=== PATIENT | female | born 2005 | race Caucasian/White ===

== ENCOUNTER 2025-03-05 08:07 | Emergency (ER) | payer OTHER, SELFPAY ==
[2025-03-05 08:08] VITALS: BP 118/71
--- NOTE | 2025-03-05 08:21 | ED.SKININJ ---
HPI-Injury
General
Chief Complaint: Ear Problem
Source: patient
Exam Limitations: none
Time Seen by Provider: 03/05/25 08:16
Nursing documentation reviewed up to this point in time: agreed with
History of Present Illness-Injury
Initial Injury comments:
20-year-old female with history of several bilateral ear infections in the past, last one was last year presents with bilateral ear pain, muffled sounds. She states the right ear pain started 2 days ago and then the left ear started bothering her
last night. She did go swimming in the ocean 4 days ago. She denies fever or chills. Denies N/V/D/C. Denies neck pain or headache.
Past History
Past History
ED Past Medical History: Other (Ear infections)
ED Past Surgical History: None
Social History
Tobacco: Non-smoker
Alcohol: None
Personal: Single
Living: with family
Employment: Employed
Review of Systems
Review of Systems
Allergies reviewed?: Yes
All Other Systems: ROS reviewed and negative except as documented in HPI and ROS
Constitutional: Denies fever or chills
EENT: Reports other (Bilateral ear pain right greater than left); Denies sore throat
Respiratory: Denies trouble breathing
Cardiac: Denies chest pain
ABD/GI: Denies abdominal pain or nausea
Musculoskeletal: Denies neck pain
Skin: Reports no symptoms
Neurological: Reports no symptoms
Phy Exam
Physical Exam
Physical Exam:
GENERAL: No acute distress. A&Ox3.
CONSTITUTIONAL: Afebrile.
EYES: clear, conjunctivae normal
ENMT: moist mucus membranes, Pharynx nl. Both ear canals with debris small amount whitish-yellow exudate, R>L, mildly erythematous, TMS visible, retracted, erythematous,
Neck: supple, no lymphadenopathy
RESPIRATORY: Regular respirations, nonlabored, lungs clear.
CARDIOVASCULAR: Regular rate and rhythm, no murmurs, no rubs.
GI: Soft, nontender
MUSCULOSKELETAL: Moves with ease. Well perfused.
SKIN: Warm, dry, pink
PSYCH: Normal mood and affect. Well kept, interactive and appropriate
NEUROLOGIC: Awake, alert and oriented. No focal neurological deficits
Course
Vital Signs
Initial and Last Documented VS:
Initial Vital Signs
Temp Pulse Resp BP Pulse Ox
97.8 F 85 18 118/71 99
03/05/25 08:08 03/05/25 08:08 03/05/25 08:08 03/05/25 08:08 03/05/25 08:08
Last Documented Vital Signs
Temp Pulse Resp BP Pulse Ox
97.8 F 85 18 118/71 99
03/05/25 08:08 03/05/25 08:08 03/05/25 08:08 03/05/25 08:08 03/05/25 08:08
MDM/Problems Addressed
Differential Diagnosis Includes:
otitis externa, otitis media
MDM/Problems Addressed:
20-year-old female with history of several bilateral ear infections in the past, last one was last year presents with bilateral ear pain, muffled sounds. She states the right ear pain started 2 days ago and then the left ear started bothering her
last night. She did go swimming in the ocean 4 days ago. She denies fever or chills. Denies N/V/D/C. Denies neck pain or headache.
Pt afebrile, NAD
TMs intact, no fever, hx and exam consistent with acute otitis externa
Treating for otitis externa
She has seen Dr. Mims, ENT in the past and will f/u with him as needed
Phrmacy called, needed alternative rx for ear drops: Prescribed Ciprodex 3 to 4 drops in each ear twice daily for 7 days
*Critical Care Note
Total Time (30-74mins, 75-104mins- exclusive of procedures): Not Applicable
ED Attending Note
-
Portions of this chart may have been created with voice recognition software.� Occasional wrong word or��sound alike� substitutions may have occurred due to the inherent limitations of voice recognition software.
Discharge Plan
Departure
Patient Disposition: Home (Routine Discharge)
Date of Disposition: 03/05/25
Time of Disposition: 08:33
Patient with high blood pressure during this ER visit?: No
Condition: Good
Discharge Problem:
Actinic otitis externa of both ears
Instructions: Outer Ear Infection (DC)
Prescriptions:
New
ciprofloxacin-hydrocortisone 0.2-1 % drops,suspension
3 drp otic (ear) BID 7 Days Qty: 10 0RF
Referrals:
Anjel Mims MD [Active, Otology] - Follow up in 5-7 days
NONE,* [Family Provider, Internal Medicine]
Activity Restrictions/Additional Instructions:
As we discussed, I sent a prescription to your pharmacy for antibiotic eardrops with a steroid and to help with the inflammation.
Ibuprofen 600 mg (with food) every 8 hours as needed for pain
See Dr. Mims, ENT if your ears are not much much better in 1 week.
Interventions
Interventions:
*Risk Screen - Suicide Last Done: 03/05/25 08:08
*General Assessment Last Done: 03/05/25 08:08
*Neglect/Abuse Screening Last Done: 03/05/25 08:08
*ED- Fall Risk Assessment Last Done: 03/05/25 08:15
*ED COVID-19 Vaccine History Last Done: 03/05/25 08:15
*Nursing Disposition Last Done: 03/05/25 08:45
Discharge Date and Time
Discharge Date/Time: 03/05/25 08:45
Print Language: SERBIAN
== END 2025-03-05 08:45 | disposition home or self-care (01) ==
LOC: EMR 08:07
PROVIDERS: EMERGENCY PHYSICIAN Emergency Medicine
DX: H60.93 Unspecified otitis externa, bilateral (principal)
CPT/HCPCS: 99283